=== PATIENT | female | born 1980 | race Two or more races ===

== ENCOUNTER 2022-08-14 16:42 | Inpatient (IN) | payer MEDICAID, OTHER ==
[~2022-08-14] VITALS: Ht 154.9 cm; Wt 89.8 kg
[2022-08-14] MEDS ORDERED: MORPHINE SULFATE 4 MG/ML SYR/VIAL IM ONE (23:30)
[2022-08-14] MEDS ORDERED: ONDANSETRON HCL 4 MG/2 ML VIAL IM ONE (23:30)
[2022-08-14 23:49] LABS: Basophils # (auto) 0.1 10 ^3/uL (0-0.2); Basophils % (auto) 1.4 % (0.0-2.0); Eosinophils # (auto) 0.1 10 ^3/uL (0-0.8); Eosinophils % (auto) 1.5 % (0.0-7.0); Hematocrit 41.1 % (36.0-46.0); Lymphocytes # (auto) 1.2 10 ^3/uL (0.4-5.4); Lymphocytes % (auto) 14.8 % (10.0-50.0); Mean Corpuscular Hemoglobin 28.7 pg (28.0-32.0); Mean Corpuscular Hgb Conc. 31.7 g/dL (32.0-36.0); Mean Corpuscular Volume 90.7 fL (80.0-100.0); Monocytes # (auto) 0.4 10 ^3/uL (0-1.3); Neutrophils # (auto) 6.2 10 ^3/uL (1.6-8.6); Neutrophils % (auto) 77.3 % (37.0-80.0); Nucleated Red Blood Cells % 0.2 %; Red Blood Cells 4.54 10^6/uL (4.0-5.20); Red Cell Distribution Width 14.3 % (11.8-14.3)
[2022-08-14 23:54] LABS: Albumin 3.4 g/dL (3.4-5.0); BUN/Creatinine Ratio 14.9; Calcium 8.8 mg/dL (8.5-10.1); Potassium 4.6 mmol/L (3.5-5.1)
[2022-08-14 23:57] LABS: Bilirubin, Total 0.8 mg/dL (0.2-1.0); Total Protein 7.2 g/dL (6.4-8.2)
[2022-08-15] MEDS ORDERED: NITROGLYCERIN 0.4 MG SL TAB SL PRN (07:30)
[2022-08-15] MEDS ORDERED: MORPHINE SULFATE INJ 2 MG/ml SYRG IV PRN ×2 (07:30)
[2022-08-15] MEDS ORDERED: HYDROcodone-ACET 5/325MG TAB PO PRN (07:30)
[2022-08-15] MEDS ORDERED: DOCUSATE SOD 100 MG CAP PO PRN (07:30)
[2022-08-15] MEDS: D5W/SOD CHL 0.45% 1,000 ML IV SCH ×4 (07:30→19:01)
[2022-08-15] MEDS ORDERED: ONDANSETRON HCL 4 MG/2 ML VIAL IV PRN ×2 (07:30→09:30)
[2022-08-15] MEDS ORDERED: ceFAZolin 1GM/50ML 100 ML IV ONE (08:13)
[2022-08-15] MEDS: LIDOCAINE 1%HCL (LOCAL ANESTH) 10 ML MDV ONE ×2 (08:24→11:44)
[2022-08-15] MEDS ORDERED: MIDAZOLAM HCL 2MG/2ML 2ml VIAL (1mg/ml) ONE (08:31)
[2022-08-15] MEDS ORDERED: fentaNYL CITRATE 100 MCG/2 ML VL ONE (08:31)
[2022-08-15] MEDS ORDERED: ROCURONIUM 10MG/ML 10ML VIAL IV ONE (08:32)
[2022-08-15] MEDS ORDERED: HYDROmorphone HCL 2 MG/ML VL/or syr IV PRN ×2 (09:30)
[2022-08-15] MEDS ORDERED: VANCOMYCIN HCL 1000 MG VL ONE ×2 (10:55→11:09)
[2022-08-15] MEDS: HYDROmorphone HCL 2 MG/ML VL/or syr ONE ×2 (12:40→12:55)
[2022-08-15] MEDS ORDERED: ceFAZolin 3 GM in D5W 5% 100 ML IV SCH (14:00)
[2022-08-15 17:14] VITALS: BP 109/63
[2022-08-15 17:15] VITALS: BP 139/73
[2022-08-15] MEDS ORDERED: DEXTROSE (50%) 50ML SYRG IV PRN (18:15)
[2022-08-15] MEDS: ceFAZolin 3 GM in D5W 5% 100 ML IV SCH ×2 (19:06→22:37)
[2022-08-15 22:00] VITALS: BP 102/52
[2022-08-15] MEDS: ACCU-CHEK COMFORT CURVE STRIP VI SCH (22:37)
[2022-08-15] MEDS: ONDANSETRON HCL 4 MG/2 ML VIAL IV PRN (23:14)
[2022-08-16 05:00] VITALS: BP 105/55
[2022-08-16 06:51] LABS: Basophils # (auto) 0.1 10 ^3/uL (0-0.2); Basophils % (auto) 0.7 % (0.0-2.0); Eosinophils # (auto) 0.1 10 ^3/uL (0-0.8); Hematocrit 33.1 % (36.0-46.0); Hemoglobin 10.8 g/dL (12.2-16.2); Lymphocytes # (auto) 1.6 10 ^3/uL (0.4-5.4); Lymphocytes % (auto) 21.7 % (10.0-50.0); Mean Corpuscular Hemoglobin 29.2 pg (28.0-32.0); Mean Corpuscular Hgb Conc. 32.6 g/dL (32.0-36.0); Mean Corpuscular Volume 89.6 fL (80.0-100.0); Monocytes # (auto) 0.4 10 ^3/uL (0-1.3); Monocytes % (auto) 5.8 % (0.0-12.0); Neutrophils # (auto) 5.3 10 ^3/uL (1.6-8.6); Neutrophils % (auto) 70.8 % (37.0-80.0); Red Cell Distribution Width 14.2 % (11.8-14.3); White Blood Cell 7.5 10^3/uL (4.4-10.8)
[2022-08-16 07:06] LABS: Calcium 7.9 mg/dL (8.5-10.1)
[2022-08-16 07:11] LABS: BUN/Creatinine Ratio 12.4; Bilirubin, Total 0.5 mg/dL (0.2-1.0); Total Protein 6.1 g/dL (6.4-8.2)
[2022-08-16] MEDS: metFORMIN HYDROCHLORIDE 500 MG TAB PO SCH ×2 (08:00→18:00)
[2022-08-16 08:46] VITALS: BP 100/53
[2022-08-16] MEDS: ceFAZolin 3 GM in D5W 5% 100 ML IV SCH ×2 (10:23→17:30)
[2022-08-16] MEDS: ACCU-CHEK COMFORT CURVE STRIP VI SCH (11:06)
[2022-08-16 12:52] VITALS: BP 105/52
[2022-08-16] MEDS: ONDANSETRON HCL 4 MG/2 ML VIAL IV PRN (14:17)
[2022-08-16] MEDS ORDERED: ASPI-325 PO (14:47)
[2022-08-16] MEDS ORDERED: HYDR-4902 PO (14:47)
[2022-08-16] MEDS ORDERED: CEPH500T PO (14:47)
[2022-08-16] MEDS ORDERED: ASPirin 81 mg TAB PO SCH (22:00)
== END 2022-08-16 19:30 | disposition home or self-care (01) | DRG 313 ==
LOC: ER 16:42 → OVERFLOW 08-15 07:22 → WEST WING 08-15 16:43
PROVIDERS: ADMIT Nurse Practitioner; ATTEND Nurse Practitioner
PROC: BQ1H1ZZ Fluoroscopy of Left Ankle using Low Osmolar Contrast (ICD-10-PCS; 2022-08-15)
PROC: 0QSH04Z Reposition Left Tibia with Internal Fixation Device, Open Approach (ICD-10-PCS; principal; 2022-08-15 08:26)
DX: S82.852A Displaced trimalleolar fracture of left lower leg, initial encounter for closed fracture (principal); E11.41 Type 2 diabetes mellitus with diabetic mononeuropathy; E11.65 Type 2 diabetes mellitus with hyperglycemia; G57.90 Unspecified mononeuropathy of unspecified lower limb; E66.9 Obesity, unspecified; S82.62XA Displaced fracture of lateral malleolus of left fibula, initial encounter for closed fracture; Z20.822 Contact with and (suspected) exposure to COVID-19; W01.0XXA Fall on same level from slipping, tripping and stumbling without subsequent striking against object, initial encounter; Y93.89 Activity, other specified; Y92.091 Bathroom in other non-institutional residence as the place of occurrence of the external cause; Y99.8 Other external cause status; Z71.3 Dietary counseling and surveillance; Z88.0 Allergy status to penicillin; Z91.81 History of falling; Z88.8 Allergy status to other drugs, medicaments and biological substances; Z68.37 Body mass index [BMI] 37.0-37.9, adult
CPT/HCPCS: 36415; 71045; 73600; 73610; 76000; 80053; 82962; 84484; 84702; 85025; 85730; 86850; 86900; 86901; 87426; 96372; G0378; J0690; J2001; J2250; J2405; J7060